=== PATIENT | female | born 1990 | race Caucasian/White ===

== ENCOUNTER 2022-04-13 13:35 | Outpatient (CLI) | payer OTHER, SELFPAY ==
[2022-04-13 16:50] LABS: Chlamydia DNA Amplified* NOT DETECTED (No Detected); GC DNA Amplified* NOT DETECTED (No Detected)
== END 2022-04-13 13:36 | disposition home or self-care (01) ==
LOC: NFLDREF 13:59
PROVIDERS: Visit Provider Registered Nurse
DX: N89.8 Other specified noninflammatory disorders of vagina (principal)
CPT/HCPCS: 87491; 87591

== ENCOUNTER 2024-01-23 13:44 | Outpatient (CLI) | payer OTHER, SELFPAY ==
--- NOTE | 2024-01-23 14:00 | CRLHL7_ITS ---
For Patients: As a result of the Century Cures Act, medical imaging exams and procedure reports are released immediately into your electronic medical record. You may view this report before your referring provider. If you have questions, please contact your health care provider. INDICATION: First trimester scan, establish dates. COMPARISON: None. TECHNIQUE: Real-time ribera-scale imaging of the pelvis was performed. FINDINGS: Intrauterine gestational sac is present measuring 2.9 cm, 8 weeks 0 days. pole measures 1.2 cm, 7 weeks 3 days. Yolk sac measures 1.9 millimeters. No heart tones. No perigestational hemorrhage. Ovaries normal. IMPRESSION: Intrauterine demise. Dictated by Alvaro Treadwell MD @ 01/24/2024 6:44:44 AM (Electronically Signed)
== END 2024-01-23 13:45 | disposition home or self-care (01) ==
LOC: US 13:44
PROVIDERS: Visit Provider Advanced Practice Midwife
DX: Z34.91 Encounter for supervision of normal pregnancy, unspecified, first trimester (principal); Z3A.08 8 weeks gestation of pregnancy; O02.1 Missed abortion
CPT/HCPCS: 76817

== ENCOUNTER 2024-06-19 14:22 | Outpatient (CLI) | payer OTHER, SELFPAY | END 2024-06-19 14:23 | disposition home or self-care (01) | LOC: NFLDREF 06-22 06:53 | PROVIDERS: Visit Provider Advanced Practice Midwife | DX: Z34.81 Encounter for supervision of other normal pregnancy, first trimester (principal); Z11.3 Encounter for screening for infections with a predominantly sexual mode of transmission | CPT/HCPCS: 84702; 87491; 87591 ==

== ENCOUNTER 2024-06-22 10:28 | Outpatient (CLI) | payer OTHER, SELFPAY | END 2024-06-22 10:29 | disposition home or self-care (01) | LOC: NFLDREF 18:21 | PROVIDERS: Visit Provider Advanced Practice Midwife | DX: Z34.91 Encounter for supervision of normal pregnancy, unspecified, first trimester (principal) | CPT/HCPCS: 84702 ==

== ENCOUNTER 2024-06-24 08:20 | Outpatient (CLI) | payer OTHER, SELFPAY | END 2024-06-24 08:21 | disposition home or self-care (01) | LOC: NFLDREF 06-25 05:21 | PROVIDERS: Visit Provider Advanced Practice Midwife | DX: O20.9 Hemorrhage in early pregnancy, unspecified (principal) | CPT/HCPCS: 84702 ==

== ENCOUNTER 2024-06-26 13:09 | Outpatient (CLI) | payer OTHER, SELFPAY ==
--- NOTE | 2024-06-26 13:15 | CRLHL7_ITS ---
For Patients: As a result of the Century Cures Act, medical imaging exams and procedure reports are released immediately into your electronic medical record. You may view this report before your referring provider. If you have questions, please contact your health care provider. INDICATION: First trimester scan, establish dates. COMPARISON: None. TECHNIQUE: Real-time ribera-scale imaging of the pelvis was performed. FINDINGS: Sonographic imaging demonstrates a single living intrauterine gestation. The embryo demonstrates a regular cardiac rate measuring 121 beats per minute. The embryo`s crown-rump length measurement of 0.37 cm corresponds to a gestational age of 6 weeks 0 days with a sonographic due date of 02/19/2025. There is a normal-appearing yolk sac. There are no gross abnormalities noted within the embryo at this early state of development. The gestational sac has a normal appearance. Blood products within the right side of bicornuate uterus measuring 2.4 x 0.5 x 1.4 cm. The amount of fluid within the sac appears appropriate for gestational age. The cervix is closed. The myometrium appears normal. Corpus luteal/hemorrhagic ovarian cysts measure 1.9 x 1.5 x 1.3 cm on the right and 2.0 x 1.7 x 1.5 cm on the left. There are no suspicious fluid collections noted in the cul-de-sac. IMPRESSION: Single living intrauterine within the left horn of a bicornuate uterus measuring 6 weeks 0 days and sonographic due date 02/19/2025. Blood products are present within the right horn of a bicornuate uterus measuring 2.4 x 0.5 x 1.4 cm. Dictated by Alvaro Treadwell MD @ 06/29/2024 9:58:55 AM (Electronically Signed)
== END 2024-06-26 13:10 | disposition home or self-care (01) ==
LOC: US 13:09
PROVIDERS: Visit Provider Advanced Practice Midwife
DX: O20.9 Hemorrhage in early pregnancy, unspecified (principal); Z3A.01 Less than 8 weeks gestation of pregnancy
CPT/HCPCS: 76817

== ENCOUNTER 2024-06-26 14:26 | Outpatient (CLI) | payer OTHER, SELFPAY | END 2024-06-26 14:27 | disposition home or self-care (01) | LOC: NFLDREF 14:28 | PROVIDERS: Visit Provider Advanced Practice Midwife | DX: N89.8 Other specified noninflammatory disorders of vagina (principal) | CPT/HCPCS: 87086 ==

== ENCOUNTER 2024-07-13 11:32 | Outpatient (CLI) | payer OTHER, SELFPAY ==
[2024-07-13 16:37] LABS: Chlamydia DNA Amplified* NOT DETECTED (No Detected); GC DNA Amplified* NOT DETECTED (No Detected)
[2024-07-16 03:32] LABS: HPV Source Cervical; HPV, High Risk by TMA Not Detected
== END 2024-07-13 11:33 | disposition home or self-care (01) ==
PROVIDERS: Visit Provider Advanced Practice Midwife
DX: Z34.91 Encounter for supervision of normal pregnancy, unspecified, first trimester (principal); Z12.4 Encounter for screening for malignant neoplasm of cervix; Z3A.08 8 weeks gestation of pregnancy
CPT/HCPCS: 83020; 83021; 85660; 86592; 86703; 86704; 86706; 86762; 86787; 86803; 86850; 86900; 86901; 87086; 87340; 87491; 87591; 87624; 87625; 88141; 88142

== ENCOUNTER 2024-11-23 09:01 | Outpatient (CLI) | payer OTHER, SELFPAY ==
--- NOTE | 2024-11-23 09:15 | CRLHL7_ITS ---
For Patients: As a result of the Century Cures Act, medical imaging exams and procedure reports are released immediately into your electronic medical record. You may view this report before your referring provider. If you have questions, please contact your health care provider. OB ULTRASOUND LMP: 05/14/2024. CASS by LMP: 02/18/2025. GA: 27 w, 4 d. Single. INDICATION: Maternal care for unspecified congenital malformation. TECHNIQUE: Real time grayscale imaging of the fetus was performed. Transabdominal. CERVIX: Not visualized. POSITIONING: Vertex. AMNIOTIC FLUID: 6.7 cm. SDP (N: greater than 2 x 1 cm) PLACENTA: Technique: Transabdominal. PLACENTA POSITION: Right wall. DOPPLER: heart rate: 141 bpm. BIOMETRY: BPD: 7.5 cm. 30 w, 1 d, 97 percent. HC: 26.8 cm. 29 w, 2 d, 74 percent. AC: 24.4 cm. 28 w, 5 d, 76 percent. FL: 5.5 cm. 29 w, 1 d, 80 percent. FL/AC ratio: 22.64 percent. HC/AC ratio: 1.10. EFW: 1317 g. Weight: 2 lbs, 14 oz. age by this US: 29 w, 2 d. CASS by this US: 02/06/2025. Percentile by CASS: 89 percent. IMPRESSION: Sonographic gestational age 29 weeks 2 days and sonographic due date 02/06/2025. Sonographic age 12 days ahead of the clinical age. Estimated weight 89th percentile. Abdominal circumference 76th percentile. Alvaro Treadwell M.D. Diagnostic Radiologist [email or web address] [email or web address]/Dictated by: Alvaro Treadwell MD @ 11/23/2024 10:30:00 AM (Electronically Signed)
== END 2024-11-23 09:02 | disposition home or self-care (01) ==
LOC: US 09:02
PROVIDERS: Visit Provider Obstetrics & Gynecology
DX: O34.02 Maternal care for unspecified congenital malformation of uterus, second trimester (principal); O36.63X0 Maternal care for excessive fetal growth, third trimester, not applicable or unspecified; Z3A.27 27 weeks gestation of pregnancy
CPT/HCPCS: 76816

== ENCOUNTER 2024-11-23 09:03 | Outpatient (CLI) | payer OTHER, SELFPAY | END 2024-11-23 09:04 | disposition home or self-care (01) | LOC: NFLDREF 12-01 23:03 | PROVIDERS: Visit Provider Obstetrics & Gynecology | DX: Z34.83 Encounter for supervision of other normal pregnancy, third trimester (principal) | CPT/HCPCS: 86592 ==

== ENCOUNTER 2025-01-06 09:15 | Outpatient (CLI) | payer OTHER, SELFPAY ==
--- NOTE | 2025-01-06 09:30 | CRLHL7_ITS ---
For Patients: As a result of the Cures Act, medical imaging exams and procedure reports are released immediately into your electronic medical record. You may view this report before your referring provider. If you have questions, please contact your health care provider. OB ULTRASOUND FOLLOW-UP/LIMITED, 01/06/2025 CLINICAL HISTORY: Bicornuate uterus. COMPARISON: 11/23/2024, 10/13/2024, 09/22/2024. TECHNIQUE: Real time ribera scale imaging of the fetus was performed. Transabdominal imaging performed. FINDINGS: LMP: 05/14/2024. CASS by LMP: 02/18/2025. GA: 33 weeks 6 days. Gestation: Single. Cervix: Not visualized. Positioning: Vertex. Amniotic Fluid: 5.1 cm SDP. Placenta: Technique: TA. Placenta Position: Anterior, left wall. Dopplers: Heart Rate: 159 bpm. BIOMETRY: BPD: 9.2 cm, 37 weeks 3 days. >97% HC: 32.8 cm, 37 weeks 2 days. 91.6% AC: 30.9 cm, 34 weeks 6 days. 80.2% FL: 6.7 cm, 34 weeks 3 days. 55.3% FL/AC Ratio: 21.6% HC/AC Ratio: 1.1. EFW: 2628 g, 5 lb 13 oz. Age by this US: 36 weeks 0 days. CASS by this US: 02/03/2025. Percentile by CASS: 82.7% IMPRESSION: 1. Sonographic gestational age 36 weeks 0 days and sonographic due date 02/03/2025. Sonographic age is 15 days ahead of the clinical age. 2. Estimated weight 83rd percentile. Abdominal circumference 80th percentile. BPD greater than 97th percentile. Alvaro Treadwell M.D. Diagnostic Radiologist [email or web address] Transcribed: 11:19 am DW/Dictated by: lAvaro Treadwell MD @ 01/06/2025 10:41:00 AM (Electronically Signed)
== END 2025-01-06 09:16 | disposition home or self-care (01) ==
LOC: US 09:15
PROVIDERS: Visit Provider Obstetrics & Gynecology
DX: O34.03 Maternal care for unspecified congenital malformation of uterus, third trimester (principal); O36.63X0 Maternal care for excessive fetal growth, third trimester, not applicable or unspecified; Q51.3 Bicornate uterus; Z3A.33 33 weeks gestation of pregnancy
CPT/HCPCS: 76816

== ENCOUNTER 2025-01-20 09:00 | Outpatient (CLI) | payer OTHER, SELFPAY | END 2025-01-20 09:01 | disposition home or self-care (01) | LOC: NFLDREF 01-22 02:49 | PROVIDERS: Visit Provider Obstetrics & Gynecology | DX: Z34.83 Encounter for supervision of other normal pregnancy, third trimester (principal) | CPT/HCPCS: 87081; 87653 ==

== ENCOUNTER 2025-02-16 07:15 | Inpatient (IN) | payer OTHER, SELFPAY ==
[2025-02-16] VITALS (27 sets, daily range): BP systolic 96–131; BP diastolic 46–87; PULSE 65–83; RESP 16–18; TEMP 36.3–37.1; O2SAT 96–100; BMI 29.6
[2025-02-16] MEDS: LACTATED RINGERS 1000 ML 1,000 ML 125 ML IV ×2 (08:20→12:58)
[2025-02-16 08:21] LABS: Hematocrit* 37.7 % (33.0-51.0); Hemoglobin* 12.4 gm/dL (12.0-16.0); Immature Granulocytes Abs Auto 0.02 K/uL (0.00-0.30); Immature Granulocytes Pct Auto 0.3 %; Lymphocytes Absolute Auto 1.55 K/uL (0.90-2.90); Mean Corpuscular HGB Conc 33 gm/dL (32-36); Mean Corpuscular Hemoglobin 29 pg (26-34); Mean Corpuscular Volume 89 fL (80-100); RDW Coefficient of Variation % 14.8 % (11.5-15.5); Red Blood Count* 4.26 m/uL (4.00-5.20); White Blood Count* 7.56 K/uL (4.50-11.00)
[2025-02-16 08:22] LABS: Slide Review Reflex No
--- NOTE | 2025-02-16 09:00 | SUR.OPER ---
PATIENT QUESTIONS ANSWERED SATISFACTORILY PREOPERATIVELY.? PATIENT BROUGHT TO OR #5 PER AMBULATION BY THE OB RN.? Patient positioned supine on OR #5 bed.? The perioperative?team supported arms bilaterally on arm boards.? Final approval of positioning by surgeon.
--- NOTE | 2025-02-16 09:11 | P.OBHP_ITS ---
OB - H&P: HPI History of Present Illness Chief complaint: Maternity Narrative: Tosin Escobedo is a 34 year old female at 39w5d GA seen for repeat C/S. is complicated by bicornuate uterus, history of C/S, history of melanoma, anxiety and anemia. Patient is feeling well today with no acute concerns. Denies regular/painful uterine contractions, vaginal bleeding or leaking of fluid. Endorses active movement. No questions or concerns regarding her . Preop hemoglobin 12.4, platelets 112. Specific Issues/Plans Partner: Mu? H&P:? Kia on 01/27 #Bicornate uterus not noted in previous Level II US. Redemonstrated. Growth at 28 and 34 weeks. Orders placed # Previous C/S?- planning rC/S on 02/16 with Kia #? Melanoma excision in November 2023 seeing Derm for follow up as recommended Send placenta to pathology #? Hx anxiety not on meds at [facility], denies issues at this time. Elevated PHQ9 and GAD7 at 32 weeks - PGQ9 5 and GAD7 of 7 at follow up. ? #Anemia - Hgb 10.4 at 27w4d GA, start oral iron Imaging:??? 09/22/24: EFW 90 percentile. AC 82nd percentile. Posterior placenta, no previa. Three-vessel cord. MVP 6.1 cm. No anomalies commonly detected by ultrasound were detected. However there were suboptimal views. Transabdominal imaging of the cervix appeared long and closed. Some images suggest a uterine anomaly/bicornuate or septated uterus with fetus located on left side of the uterus. Transvaginal ultrasound performed for cervical length which was 45 mm. Follow-up to in 4 weeks to reassess anatomy for the suboptimal views. 10/13/24: EFW 550 g, 94th percentile, AC 90th percentile. Posterior/left lateral placenta, no previa. MVP 5.7 cm. Remaining anatomy survey was completed, no anomalies. 11/23: EFW 1317g at 89%ile, AC 76%ile. Vertex. FHR 141bpm, MVP 6.7cm. 01/06: EFW 2628g at 83%ile - BPD >97, HC 92, AC 80, FL 55. MVP 5.1. Vertex. Vaccinations:?? COVID: initial series, boosted 1 time, declined booster today. Flu: 05/18/2024 Tdap: 12/21/24 32 week mental health: PHQ9: 10, GAD7: 8. Declined referral/medications. Last pap:? done at NOB visit? PFSH PFSH Medical History Vaginal bleeding affecting early ?O20.9 - Hemorrhage in early , unspecified (ICD-10) Hx of one miscarriage ?Z87.59 - Personal history of other complications of , childbirth and the puerperium (ICD-10) Anemia ?D64.9 - Anemia, unspecified (ICD-10) History of PID ?Z87.42 - Personal history of other diseases of the female genital tract (ICD-10) Mastitis ?N61.0 - Mastitis without abscess (ICD-10) Surgical History Hx of dilation and curettage ?Z98.890 - Other specified postprocedural states (ICD-10) History of section (08/11/21) ?Z98.891 - History of uterine scar from previous surgery (ICD-10) History of tonsillectomy (2010) ?Z90.89 - Acquired absence of other organs (ICD-10) Family History Father Liver disease Colitis Mother High cholesterol Maternal Grandmother High cholesterol Maternal Grandfather High cholesterol Alcohol dependence Family/Other Cancer Aunt Melanoma Family/Other Melanoma Social History Narrative: Education: Bachelors? ? Work: manager nursing? ? Partner: Mu? partner works in factory Lives with: Nghia age 3 years? ? Pets: none? ? Abuse: Denies past Safe at home with current partner ? ? ? Special Diet: Denies? ? Ok with a blood transfusion: yes? ? Culture or sabianism beliefs: denies? RISK FACTORS? ? Exercise Times/wk: not regularly? ? Depression/Anxiety: more anxiety and some depression? ? Previous Treatments not at this time, pervious medication ? Therapy in past PILO: 6 PHQ 9: 4? ? Seat Belt Use: Routinely ? Smoking: Denies past/present? ? Alcohol/day: Denies while ? ?when not 5-8 drinks a week Caffeine: normally a coffee and soda or bubbler in afternoon has decreased intake? ? Drug Use: Denies past/present? ? What is your current living situation?: I presently have a place to live Problems where you live: no known problems In the past 12 months, utilities in danger of being shut off: no In past 12 months, lack of transportation kept you from medical appts, meetings, work, or getting things needed for daily living: no In the past 12 mos, have been you worried that your food would run out before you had money to buy more?: never true In the past 12 mos, the food you bought just didn't last and you didn't have money to buy more?: never true Smoking Status: Never smoker How often does anyone, including family, friends and others, physically hurt you : never How often does anyone, including family, friends and others, insult or talk down to you: never How often does anyone, including family, friends and others, threaten you with harm: never How often does anyone, including family, friends and others, scream or curse at you: never Meds Home Medications and Allergies Home Medications ?Medication ?Instructions ?Recorded ?Confirmed ?Type 103-folic ac 400 tab PO 01/23/24 02/11/25 His tory mcg-omega-3 32.5 mg-dha-fish oil chew tablet ( with DHA and Folic Acid) calcium carbonate (Tums) 200 mg PO BID PRN 12/08/24 0 02/16/25 History ferrous sulfate 325 mg (65 mg 325 mg PO QDAY 12/08/24 02/16/25 History iron) tablet Allergies Allergy/AdvReac Type Severity Reaction Status Date / Time No Known Drug Allergies Allergy Verified 02/11/25 09:25 OB - H&P: Exam Physical Exam: Vital signs: Temp Pulse Resp BP Pulse Ox 98.1 F 76 16 121/87 99 02/16/25 07:40 02/16/25 07:40 02/16/25 07:40 02/16/25 07:40 02/16/25 07:38 Narrative: Physical exam: General: No acute distress Psych: Alert and oriented x3, full affect Abdomen: Gravid. Otherwise soft and nontender. heart rate: Reactive NST. Baseline of 135 beats per minute, moderate variability, several qualifying 15x15 accelerations seen. OB - Results Labs Labs: Short CBC 02/16/25 Range/Units 08:15 WBC 7.56 (4.50-11.00) K/uL Hgb 12.4 (12.0-16.0) gm/dL Hct 37.7 (33.0-51.0) % Plt Count 112 L (140-440) K/uL Assessment and Plan Assessment and plan (1) Hx of section complicating : Status: Acute (2) Hx of melanoma excision: Problem comment: November 2023 sees train braker Status: Acute (3) Bicornate uterus complicating : Status: Acute (4) Anxiety: Status: Chronic (5) Migraine without aura: Status: Chronic Plan Tosin is a 34-year-old G 3P1 at 39 weeks seen prior to scheduled repeat . is complicated by history of , bicornuate uterus, anemia, anxiety and AMA. - Plan to proceed with scheduled repeat . We again reviewed the risks, benefits and alternatives in detail. All questions answered, written consent previously obtained but initial today. - preop labs obtained, new gestational thrombocytopenia noted with platelets of 112. - active type and screen on file - plan perioperative Ancef - placenta to be sent for pathology given history of melanoma
[2025-02-16 10:24] LABS: Prothrombin Time 12.7 Seconds
[2025-02-16 10:25] LABS: INR 0.88 (0.91-1.10)
[2025-02-16 10:39] LABS: Hematocrit* 31.3 % (33.0-51.0); Hemoglobin* 10.4 gm/dL (12.0-16.0); Immature Granulocytes Abs Auto 0.08 K/uL (0.00-0.30); Immature Granulocytes Pct Auto 0.7 %; Mean Corpuscular HGB Conc 33 gm/dL (32-36); Mean Corpuscular Hemoglobin 30 pg (26-34); Mean Corpuscular Volume 89 fL (80-100); RDW Coefficient of Variation % 14.8 % (11.5-15.5); Red Blood Count* 3.50 m/uL (4.00-5.20); White Blood Count* 10.67 K/uL (4.50-11.00)
[2025-02-16 10:40] LABS: Lymphocytes Absolute Auto 1.50 K/uL (0.90-2.90); Slide Review Reflex No
[2025-02-16] MEDS: CEFAZOLIN 2 GM INJ IVP (10:42)
[2025-02-16 11:05] LABS: INR 1.02 (0.91-1.10); Prothrombin Time 14.2 Seconds
[2025-02-16] MEDS: miSOPROStoL 800 MCG/4 TABLET PR (11:34)
--- NOTE | 2025-02-16 11:53 | P.ANES_ITS ---
Anesthesia Charges Start Date/Time Anesthesia Start Date: 02/16/25 Anesthesia Start Time: 09:01 Stop Date/Time Anesthesia Stop Date: 02/16/25 Anesthesia Stop Time: 11:42 Coding CPT Codes CPT Codes: ANESTH CS DELIVERY - 65204 ([id number]) P2 - PATIENT W/MILD SYST DISEASE, QK - CATH LAB TECH 2-4 CNCRNT ANES PROC, QX - BREAD WRAPPING MACHINE FEEDER SVC W/ MD MED DIRECTION
--- NOTE | 2025-02-16 11:53 | W.ANESCHARGE ---
Anesthesia Charges Start Date/Time Anesthesia Start Date: 02/16/25 Anesthesia Start Time: 09:01 Stop Date/Time Anesthesia Stop Date: 02/16/25 Anesthesia Stop Time: 11:42 Coding CPT Codes CPT Codes: ANESTH CS DELIVERY - 03687 ([id number]) P2 - PATIENT W/MILD SYST DISEASE, QK - CONTROL AND RECOVERY SPECIAL TACTICS 2-4 CNCRNT ANES PROC, QX - KILN PLACER SVC W/ MD MED DIRECTION
--- NOTE | 2025-02-16 11:55 | P.NB_ITS ---
Nerve Block Nerve Block Time Seen by Provider: 11:30 Date Seen: 02/16/25 Type of block requested by surgeon for post-operative analgesia: TAP Side: bilateral Time out performed: Yes Verification of patient name: Yes Verification of date of : Yes Name of person performing procedure: Doc Healy Continuous monitoring Was continuous monitoring of O2 sat, B/P, cardiac cath lab manager, recorded every 15 minutes?: Yes Procedure Checklist: sterile prep, needles and gloves Ultrasound guided. Images saved: Yes Medications given in 5ml increments after negative aspiration: Marcaine %: 0.25 mL: 30 Needle gauge: 20 and Exparel mL: 10 Needle gauge: 20 Patient tolerated procedure well: Yes Block Charges Block Charge (with Pro Fee): TAP Bilateral Use of Ultrasound Machine for Block: Yes- US Guidance/pain block
--- NOTE | 2025-02-16 12:00 | P.ANES_ITS ---
Anesthesia Charges Start Date/Time Anesthesia Start Date: 02/16/25 Anesthesia Start Time: 09:01 Stop Date/Time Anesthesia Stop Date: 02/16/25 Anesthesia Stop Time: 11:42 Coding CPT Codes CPT Codes: ANESTH CS DELIVERY - 45845 ([id number]) QK - PROJECT MANAGER/DESIGN MANAGER 2-4 CNCRNT ANES PROC, QX - PRODUCTION ASSEMBLER SVC W/ MD MED DIRECTION, P2 - PATIENT W/MILD SYST DISEASE
--- NOTE | 2025-02-16 12:00 | W.ANESCHARGE ---
Anesthesia Charges Start Date/Time Anesthesia Start Date: 02/16/25 Anesthesia Start Time: 09:01 Stop Date/Time Anesthesia Stop Date: 02/16/25 Anesthesia Stop Time: 11:42 Coding CPT Codes CPT Codes: ANESTH CS DELIVERY - 43623 ([id number]) QK - PATTERNMAKER PLASTER 2-4 CNCRNT ANES PROC, QX - PILLOWCASE SEWER SVC W/ MD MED DIRECTION, P2 - PATIENT W/MILD SYST DISEASE
[2025-02-16 12:30] LABS: Hematocrit* 38.3 % (33.0-51.0); Hemoglobin* 12.7 gm/dL (12.0-16.0); Immature Granulocytes Pct Auto 0.3 %; Mean Corpuscular HGB Conc 33 gm/dL (32-36); Mean Corpuscular Hemoglobin 30 pg (26-34); Mean Corpuscular Volume 89 fL (80-100); RDW Coefficient of Variation % 14.3 % (11.5-15.5); Red Blood Count* 4.30 m/uL (4.00-5.20); White Blood Count* 15.76 K/uL (4.50-11.00)
[2025-02-16 12:32] LABS: Immature Granulocytes Abs Auto 0.00 K/uL (0.00-0.30); Lymphocytes Absolute Auto 0.80 K/uL (0.90-2.90); Slide Review Reflex No
[2025-02-16] MEDS: LOPERAMIDE HCL 2 MG CAPSULE 4 MG PO (12:40)
[2025-02-16 12:45] LABS: Albumin* 3.0 g/dL (3.3-5.0); Chloride* 106 mmol/L (96-114); Sodium* 134 mmol/L (135-149)
[2025-02-16 12:46] LABS: Potassium* 4.4 mmol/L (3.6-5.1)
[2025-02-16 12:48] LABS: Alanine Aminotransferase* 12 U/L (4-35); Alkaline Phosphatase* 152 U/L (40-150); Anion Gap 5 mEq/L (7-15); Aspartate Amino Transferase* 31 U/L (12-35); Bilirubin Total* 0.5 mg/dL (0.1-1.5); Blood Urea Nitrogen* 10 mg/dL (5-24); Carbon Dioxide* 23 mmol/L (20-32); Creatinine* 0.7 mg/dL (0.5-1.5); Est. Creatinine Clearance* 96.86; Estimated Glomerular Filt Rate 116 ml/min; Total Protein* 5.7 g/dL (6.0-8.3)
[2025-02-16 12:49] LABS: Calcium* 8.4 mg/dL (8.4-10.6); Glucose* 94 mg/dL (60-115); INR 0.97 (0.91-1.10); Prothrombin Time 13.7 Seconds
--- NOTE | 2025-02-16 15:32 | PM.OBPRCCS ---
Procedure Date of procedure: 02/16/25 Pre-op diagnosis: History of , 39 weeks, bicornuate uterus, history of melanoma, anxiety and anemia Post-op diagnosis: other ( hemorrhage, possible focal placenta accreta ) Procedure Done: Global Will [facility] bill your pro fee for this procedure?: Yes Blood Loss Measurement Type: QBL (9180) Bakri Used: No Urine Output (mL): 150 Surgeon: Lencho Adam MD Oxygen Equipment Preparer: Annika Burris MD Anesthesia Type: Spinal Findings: Live born male Unremarkable uterus, bilateral fallopian tubes and ovaries Suspected adherent placenta to the posterior left endomyometrium Procedure Name: Repeat delivery Procedure Description: Patient was taken to the operating room with IV running. She received cefazolin in preoperative prophylaxis. Spinal anesthesia was administered. Bosch catheter was inserted. She was prepped and draped in the usual sterile fashion. Anesthesia was tested and found to be adequate. A low-transverse skin incision was made with a scalpel along the superior aspect of her prior Pfannenstiel scar and carried through to the underlying layer of fascia with the scalpel. The subcutaneous fat was dissected off the underlying fascia with Bovie and blunt dissection. The fascia was nicked in the midline with a scalpel, and this incision was extended laterally with scissors. The rectus muscles were in the midline. Peritoneum was identified and entered bluntly. Bovie was used to widen this opening laterally. Dirk O retractor was inserted and tightened down, providing excellent visualization of the lower uterine segment. The bladder reflection was slightly advanced along the lower uterine segment. A bladder flap was created with a combination of sharp and blunt dissection. Low-transverse uterine incision was made with a scalpel. Incision was widened bluntly. The infant's head was grasped through the hysterotomy and elevated to the hysterotomy. The remainder of the body delivered without incident with the help of fundal pressure. No nuchal cord was noted. Cord was clamped and cut after 30 seconds. was handed off to attending nurses. IV pitocin was initiated. Traction was applied to the umbilical cord, where resistance was noted. Crede of the uterus ensued, where placenta failed to deliver. Manual removal of the placenta was attempted, where the interface between the uterus and placenta could be at the infection aspect but resistance was felt when attempted to detach the placenta when moving superiorly toward the left posterior fundus. I then attempted to separate the placenta from a superior approach, where resistance was again felt at the posterior mid-uterine body and fundus. The majority of the placenta could be grasped with one hand, where the uterus was stabilized with the other, and traction was further applied to remove the placenta. Placenta was noted to be disrupted in appearance, where an apparent defect in the endomyometrium was noted at the site of adherent placental attachment. The uterus was cleaned of all clots and debris with dry lap pad x2 in attempted to remove further placental tissue. No apparent placental cotyledon was noted to be adherent but visual inspection was concerning for possible retained placental fragments/membranes. Given concern for possible focal placenta accreta spectrum, I requested administration of IV TXA, cross matching of 2u pRBCs and placement of a second IV and a second surgeon. Assessment of current QBL was requested and was noted to be approximately 500mL. A Banjo curettage was utilized to gently curette the posterior left endometrial cavity, with no apparent return of placental tissue. Another sweep of the uterine cavity was performed with lap sponge. Defect in the endomyometrium was noted from the left midbody of the uterus to the fundus along posterior aspect. Lap sponge was utilized to apply pressure to the endometrial cavity, where the posterior uterus was inspected with no apparent abnormal vessels or gross evidence of PAS/percreta. Attention was turned back to the endometrial cavity, where bleeding was noted at the site of suspected adherent placenta and subsequent endomyometrial defect. IV pitocin was discontinued in order to better assess the most proximal aspect of this defect. Dr. Burris arrived at this time to assist in the OR. A series of [id number] sutures were applied across the endomyometrial defect, working most proximal to distal. Total 4 figure of eight sutures were applied. 1u uncrossmatched pRBCs was requested while surgical repair was ongoing, while updated QBL was being quantified. IV pitocin was resumed after most fundal defect was closed. With next QBL update, blood loss was noted to be approximately 2.2L. As such, massive transfusion protocol was initiated. Some ongoing oozing was noted, but significant improvement in hemostasis was noted with reapproximation of the left posterior uterine body. IM methergine and hemabate were requested an administered. With improved uterine tone, excellent hemostasis was noted. No apparent ongoing bleeding from prior posterior left endomyometrial defect was noted. The hysterotomy was then reapproximated with 0 Vicryl in a running, locked fashion. Second layer of the same suture was used in imbricating fashion to obtain hemostasis. Two figure of eight sutures were applied at the right aspect of the hysterotomy due to ongoing oozing. A uterine sinus was encountered superiorly, where two 0 vicryl figure of eight sutures were applied then a 2-0 chromic figure of eight was applied. The bladder flap was elevated and inspected, made hemostatic with scant electrocautery. The uterus was reintroduced to the peritoneal cavity. Diligent inspection for hemostasis ensued, where excellent hemostasis and uterine tone was noted. Mary was applied across the hysterotomy and bladder flap due to scant oozing. During this time, repeat labs demonstrated hemoglobin of 10.4 (from 12.4) and platelets of 119 (from 112), coags were pending. A second unit of pRBCs was ongoing. FFP was thawed and ultimately administered. The adnexa were examined and noted to be normal in appearance. The cul-de-sac and gutters were cleansed with dampened laparotomy sponge, removing any further clots and debris. The Dirk O retractor was removed. The hysterotomy was reexamined and found to be hemostatic. The rectus muscles were grasped, elevated and examined and made hemostasis with electrocautery and Mary. The fascia was reapproximated with looped 0 PDS in a running fashion. Subcutaneous fat was irrigated and Bovie used on oozing vessels. The subcutaneous fat did not require closure. The skin was closed with a subcuticular stitch of 3-0 monocryl. Surgical glue was applied above this. details: - Liveborn male fetus - weight: 7lb 11.4 oz - APGARs were 8 and 9 at 1 and 5 minutes respectively Patient tolerated procedure well was taken to recovery area in stable condition. Prior to leaving the OR, coagulation studies returned and were noted to be within normal limits. As such, MTP was discontinued after transfusion of 2u pRBCs and 1u of FFP. Placenta was inspected and was noted to have disrupted maternal surface, sent for pathologic evaluation with note of concern for focal accreta. Endometrial curettings were also sent for pathologic evaluation. Surgical debrief was completed in OR with crew. No questions/concerns. Debrief was also completed with Tosin and her following the case. All questions answered, emotional support provided. Plan repeat labs at 1230 with further transfusion as needed. Care turned over to yard supervisor cotton gin Dr. Fatuma GILLESPIE. Complications: hemorrhage secondary to retained placenta, tissue trauma and atony Pathology: specimen obtained, sent to pathology Surgery Debrief Performed: Yes Condition: stable Disposition: floor
[2025-02-16] MEDS: ACETAMINOPHEN 500 MG TABLET 1000 MG PO ×2 (16:56→23:01)
[2025-02-16] MEDS: METHYLERGONOVINE MALEATE 0.2 MG TABLET PO (18:29)
[2025-02-16] MEDS: SIMETHICONE 80 MG TAB.CHEW PO (18:48)
[2025-02-16] MEDS: MAG HYDROX/ALUMINUM HYD/SIMETH 30 ML ORAL.SUSP PO (23:01)
[2025-02-17] VITALS (7 sets, daily range): BP systolic 104–112; BP diastolic 66–70; PULSE 84–89; RESP 16–18; TEMP 36.7–36.8; O2SAT 97–99
[2025-02-17] MEDS: METHYLERGONOVINE MALEATE 0.2 MG TABLET PO ×3 (02:57→18:01)
[2025-02-17] MEDS: ACETAMINOPHEN 500 MG TABLET 1000 MG PO ×3 (05:26→20:29)
[2025-02-17 06:46] LABS: Hematocrit* 33.0 % (33.0-51.0); Hemoglobin* 11.3 gm/dL (12.0-16.0); Immature Granulocytes Pct Auto 0.3 %; Mean Corpuscular HGB Conc 34 gm/dL (32-36); Mean Corpuscular Hemoglobin 30 pg (26-34); Mean Corpuscular Volume 88 fL (80-100); RDW Coefficient of Variation % 14.8 % (11.5-15.5); Red Blood Count* 3.75 m/uL (4.00-5.20); White Blood Count* 11.63 K/uL (4.50-11.00)
[2025-02-17 06:48] LABS: Immature Granulocytes Abs Auto 0.00 K/uL (0.00-0.30); Lymphocytes Absolute Auto 1.80 K/uL (0.90-2.90); Slide Review Reflex No
--- NOTE | 2025-02-17 08:20 | P.OBPN_ITS ---
OB - PN:Subj Subjective Time Seen by Provider: 08:00 Date Seen: 02/17/25 Narrative: Tosin Escobedo is a 34 year old seen on POD1 from repeat delivery at 39 weeks. is complicated by bicornuate uterus, history of C/S, history of melanoma, anxiety and anemia. Delivery was complicated by PPH with possible focal PAS due to adherent placenta requiring D&C and oversewing of endomyometrial defects. Total QBL was 2.7L, where MTP was activated and 2 u pRBCs and 1 FFP were administered. Post-procedure labs at 1230 yesterday demonstrated Hgb of 12.7 (from 10.4), platelets of 95 and normal coags. Overnight, her VS were within normal limits. Adequate UOP of 1.275L/8 hours. Tosin notes she is overall feeling well this morning. She has noticed that her pain is increased, attributing to wearing off of medications from surgery yesterday. At rest, she notes her pain is about a 5 and it may be a 7-8 when ambulating. She is currently only on a regimen of Tylenol, has been avoiding narcotics as these make her feel sedated and nauseous when utilized previously. NSAIDs were held in the setting of hemorrhage. In addition, she notes gaseous distension where she has not yet passed gas. She does have a sensation that flatus could be imminent, where she has been working to ambulate, taking a bowel regimen and simethicone as needed. Bosch catheter has been removed, voiding spontaneously without difficulty. Tosin notes she has had very minimal bleeding, less than her 1st . She denies feeling dizzy, lightheaded, chest pain or shortness of breath. Appetite at baseline, no nausea vomiting. No lower extremity pain, edema or erythema. Emotionally, she notes she is overall doing well. We did formally debrief her delivery yesterday, where she notes she has no questions or concerns at this time. Baby boy is doing well, no feeding difficulties. OB - PN: Obj Exam Physical Exam: Vital signs: Temp Pulse Resp BP Pulse Ox O2 Del Method 98.1 F 89 16 104/66 98 Room Air 02/17/25 02:59 02/17/25 02:59 02/17/25 04:47 02/17/25 02:59 02/17/25 02:59 02/17/25 02:59 Narrative: General: Alert and oriented, in no acute distress Psych: Appropriate mood and affect Abdomen: Moderate gaseous distension, though upper abdomen palpates as soft and compressible. Bowel sounds readily auscultated. There is tenderness to palpation in the lower quadrants, consistent with postoperative state. No rebound or guarding. Surgical dressing is on, clean/dry. No surrounding erythema or ecchymosis. Extremities: No calf edema, erythema or pain OB - PN: Obj Data Labs Labs: Laboratory Results - last 24 hr 02/16/25 02/16/25 02/16/25 08:15 10:32 12:22 WBC 7.56 10.67 15.76 H RBC 4.26 3.50 L 4.30 Hgb 12.4 10.4 L 12.7 Hct 37.7 31.3 L 38.3 MCV 89 89 89 MCH 29 30 30 MCHC 33 33 33 RDW Coeff of Jovany 14.8 14.8 14.3 Plt Count 112 L 119 L 95 L Neut % (Auto) 70.2 80.4 H 92.3 H Lymph % (Auto) 20.5 13.6 L 5.3 L Montour % (Auto) 7.9 4.4 2.0 Eos % (Auto) 0.7 0.6 0.0 Baso % (Auto) 0.4 0.3 0.1 Neut # (Auto) 5.31 8.60 H 14.50 H Lymph # (Auto) 1.55 1.50 0.80 L Montour # (Auto) 0.60 0.50 0.30 Eos # (Auto) 0.05 0.06 0.00 Baso # (Auto) 0.03 0.03 0.00 Abs Immat Gran (auto) 0.02 0.08 0.00 Imm/Tot Granulo (auto) 0.3 0.7 0.3 INR 0.88 L 1.02 0.97 APTT 24 26 25 Fibrinogen 490 H 339 389 Sodium 134 L Potassium 4.4 Chloride 106 Carbon Dioxide 23 Anion Gap 5 L BUN 10 Creatinine 0.7 Estimated Creat Clear 96.86 Estimated GFR 116 Glucose 94 Calcium 8.4 Total Bilirubin 0.5 AST 31 ALT 12 Alkaline Phosphatase 152 H Total Protein 5.7 L Albumin 3.0 L Blood Type A Positive Antibody Screen NEGATIVE Crossmatch (AHG) See Detail 02/17/25 06:30 WBC 11.63 H RBC 3.75 L Hgb 11.3 L Hct 33.0 MCV 88 MCH 30 MCHC 34 RDW Coeff of Jovany 14.8 Plt Count 98 L Neut % (Auto) 77.0 H Lymph % (Auto) 15.6 L Montour % (Auto) 6.8 Eos % (Auto) 0.2 Baso % (Auto) 0.1 Neut # (Auto) 9.00 H Lymph # (Auto) 1.80 Montour # (Auto) 0.80 Eos # (Auto) 0.00 Baso # (Auto) 0.00 Abs Immat Gran (auto) 0.00 Imm/Tot Granulo (auto) 0.3 INR APTT Fibrinogen Sodium Potassium Chloride Carbon Dioxide Anion Gap BUN Creatinine Estimated Creat Clear Estimated GFR Glucose Calcium Total Bilirubin AST ALT Alkaline Phosphatase Total Protein Albumin Blood Type Antibody Screen Crossmatch (AHG) OB - PN: A/P Delivery Assessment and Plan (1) Hx of section complicating : Status: Acute (2) Hx of melanoma excision: Problem details: 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 is complicated by bicornuate uterus, history of C/S, history of melanoma, anxiety and anemia. Delivery was complicated by PPH with possible focal PAS due to adherent placenta requiring D&C and oversewing of endomyometrial defects. Total QBL was 2.7L, where MTP was activated and 2 u pRBCs and 1 FFP were administered. Post-procedure labs at 1230 yesterday demonstrated Hgb of 12.7 (from 10.4), platelets of 95 and normal coags. Overnight, her VS were within normal limits. Adequate UOP of 1.275L/8 hours. Tosin is progressing through her postoperative milestones very well. She is ambulating, without any dizziness or lightheadedness. Voiding spontaneously. She has not yet passed gas, finds this to be bothersome due to distention. She has been addressing this with ambulation, bowel regimen and simethicone as needed. No nausea/vomiting. With regard to pain, she describes pain as a 5 at rest and 7-8 with ambulation. Her current pain regimen is only Tylenol, as NSAIDs were held in the setting of her hemorrhage. She has intentionally trying to avoid oxycodone as previously this is made her feel sedated/nauseous. Given AM hemoglobin of 11.3 and stable platelets at 98, I do feel it is safe to resume NSAIDs. Toradol orders placed times 24 hours, to be followed by ibuprofen. In addition, we discussed that I could prescribe her a lower dose of oxycodone that may be utilized if needed with the hope to minimize side effects. Revised orders to oxycodone 2.5 mg to 5 mg Q4H PRN. Plan to continue p.o. Methergine times total of 48 hours in the setting of hemorrhage. Vital signs reviewed and are within normal limits, adequate urine output. She is meeting all appropriate postoperative milestones at this time. We again debrided her delivery where there are no residual questions at this time. Would have a low threshold to repeat labs and consider further assessment if there were to be a change in her vaginal bleeding, postoperative progress or change in vital signs. Pathology pending regarding potential PAS. All questions answered.
[2025-02-17] MEDS: DOCUSATE SODIUM 100 MG CAPSULE PO (08:44)
[2025-02-17] MEDS: MAG HYDROX/ALUMINUM HYD/SIMETH 30 ML ORAL.SUSP PO ×2 (08:44→18:01)
[2025-02-18 02:15] VITALS: BP 116/75; PULSE 78; RESP 20; TEMP 36.8; O2SAT 98
[2025-02-18] MEDS: ACETAMINOPHEN 500 MG TABLET 1000 MG PO ×4 (02:24→20:48)
[2025-02-18] MEDS: METHYLERGONOVINE MALEATE 0.2 MG TABLET PO ×3 (02:25→18:23)
--- NOTE | 2025-02-18 08:28 | PM.OBPNVD1 ---
OB - PN:Subj Subjective Date Seen: 02/18/25 Patient comments OB post-: pain well controlled (Mostly dealing with gas pain/discomfort now), tolerating diet and flatus present status: doing well Narrative: The patient feels well.? The pain is well controlled with current medications.?She is feeling uncomfortable with gas pain. Urinary output is adequate and she is voiding without difficulty.? Has a good appetite, is tolerating a general diet, is passing flatus, and has not had a bowel movement.? Has scant amount of rubra lochia.? She is ambulating well. She is and reports it is going well.? OB - PN: Obj Exam Physical Exam: Vital signs: Temp Pulse Resp BP Pulse Ox O2 Del Method 98.2 F 78 20 116/75 98 Room Air 02/18/25 02:15 02/18/25 02:15 02/18/25 02:15 02/18/25 02:15 02/18/25 02:15 02/18/25 02:15 Narrative: GENERAL APPEARANCE:? normal affect, alert, no distress MOOD:? appropriate CHEST:? clear to auscultation HEART:? regular rate and rhythm ABDOMEN: positive bowel sounds, mildly distended,? soft, appropriately -tender and the uterine fundus is At Umbilicus, Midline and is appropriate for the stage of recovery. EXTREMITIES:? normal and bilateral pitting +1 edema Incision: Covered, dressing is dry and no surrounding erythema noted. 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 Gas pain: Encouraged to continue ambulation, chewing gum. 2. Methergine will be d/c today and will continue close monitoring of bleeding today, if all normal will plan to discharge home tomorrow.
[2025-02-18] MEDS: DOCUSATE SODIUM 100 MG CAPSULE PO (08:32)
[2025-02-18 08:34] VITALS: BP 120/74; PULSE 82; RESP 16; TEMP 36.7; O2SAT 98
[2025-02-18] MEDS: IBUPROFEN 600 MG TABLET PO ×2 (11:38→17:33)
[2025-02-18 16:47] VITALS: BP 138/88; PULSE 99; RESP 16; TEMP 36.7; O2SAT 98
[2025-02-18] MEDS: SIMETHICONE 80 MG TAB.CHEW PO (17:40)
[2025-02-18 20:30] VITALS: BP 123/77; PULSE 80; RESP 16; TEMP 36.8; O2SAT 98
[2025-02-18] MEDS: LANOLIN CREAM 1 APPLIC TOPICAL (20:49)
[2025-02-19] MEDS: IBUPROFEN 600 MG TABLET PO ×2 (02:42→10:50)
[2025-02-19] MEDS: METHYLERGONOVINE MALEATE 0.2 MG TABLET PO (02:43)
[2025-02-19 04:30] VITALS: BP 116/76; PULSE 68; RESP 16; TEMP 36.6; O2SAT 97
[2025-02-19] MEDS: ACETAMINOPHEN 500 MG TABLET 1000 MG PO (07:49)
[2025-02-19] MEDS: DOCUSATE SODIUM 100 MG CAPSULE PO (07:50)
--- NOTE | 2025-02-19 07:50 | PM.OBDSVD1 ---
DS: Providers Provider Time Seen by Provider: 07:51 Date Seen: 02/19/25 Date of admission: 02/16/25 07:15 Primary care physician: Not a Local Provider Admitting Clinician: Lauren Adam MD Attending Physician on discharge: Bety Melton MD Date of Discharge: 02/19/25 DS: Diagnosis Discharge Diagnosis (1) Status post repeat low transverse section: Status: Acute Problem details: With bilateral salpingectomy (2) Placenta accreta affecting delivery: Status: Acute (3) hemorrhage: Status: Acute Problem details: 2u pRBC's and 1u FFP Exam Narrative: Exam Narrative: General: Pleasant, , well groomed woman in no acute distress. Vital signs: Included in her electronic medical record. Heart: Regular rate and rhythm without gallop, rub or murmur. Chest: Clear to auscultation bilaterally. Abdomen: Soft, nontender and nondistended with normal bowel sounds throughout. No CVA or flank tenderness. Fundus firm at the umbilicus in the midline. Incision: Clean, dry and intact with subcutaneous sutures and skin adhesive gel. Extremities: 2+ bilateral lower extremity edema to the mid card. No pain. Const: Vital Signs, click to edit/add: Vital Signs - 24 hr 02/18/25 08:34 02/18/25 16:47 02/18/25 20:30 Temperature 98.1 F 98.1 F 98.2 F Pulse Rate [Pulse Oximeter] 82 99 80 Respiratory Rate 16 16 16 Blood Pressure [Ri ght Arm] 120/74 138/88 123/77 Pulse Oximetry 98 98 98 Oxygen Delivery Me thod Room Air Room Air Room Air 02/19/25 04:30 Temperature 98 F Pulse Rate [Pulse Oximeter] 68 Respiratory Rate 16 Blood Pressure [Ri ght Arm] 116/76 Pulse Oximetry 97 Oxygen Delivery Me thod Room Air OB - DS: Summary Hospital Course Hospital Course: Tosin is a 34 year old G 3 P 1011 now 2 at 39 weeks gestation that was admitted to the Center on 02/16/25 for scheduled repeat with bilateral salpingectomy. She had an complicated delivery: Possible focal placenta accreta with hemorrhage, received 2 units packed red blood cells and 1 unit FFP. She delivered a viable male . She is breast feeding. the patient has done well. Peripartum Data Procedures: Procedures Operation Date: 02/16/25 08:45 Actual Procedure Side Surgeon p Repeat Section Lauren Adam MD Procedures: tubal ligation/salpingectomy Infant Gender: Male Status at Discharge Functional status at discharge: independent ambulation Overall status at discharge: patient is progressing back to baseline Time Spent with Patient Time attestation: Total time spent providing and/or coordinating discharge services: Time spent: Less than 30 minutes Discharge Plan Discharge Disposition: Home, Self-Care Date of Admission: 02/16/25 07:15 Attending Provider on Discharge: Bety Melton Primary Care Provider: Provider,Not a Local Condition: Improved Anticipated Discharge Date/Time: 02/19/25 12:00 Discharge Medications: New docusate sodium 100 mg Capsule 100 mg PO BID PRN (Reason: constipation) Qty: 100 0RF ibuprofen 600 mg Tablet 600 mg PO Q6H PRNQty: 30 0RF oxycodone 5 mg Tablet 5 mg PO 3XD PRN (Reason: Pain) Qty: 21 0RF Continued with DHA-Folic Acid 400-32.5 mcg-mg tablet,chewable PO calcium carbonate [Tums] 200 mg calcium (500 mg) tablet,chewable 200 mg PO BID PRN Discontinued ferrous sulfate 325 mg (65 mg iron) tablet 325 mg PO QDAY Discharge Orders: Discharge Order (Routine); Ordered 02/19/25 Ordered By: Bety Melton Patient Education: (DC), Hemorrhage (DC) Additional Instructions: ACTIVITY RESTRICTIONS: Nothing vaginally for 6 weeks: no tampons/intercourse No driving while taking narcotic pain medication during the day. 1-2 weeks. Lifting restriction: Maximum of 20 pounds for 6 weeks. No high impact or core exercises: 6 weeks. Do not submerge the incision in water (bath/pool/roque): 2 weeks. Off of work/school for a minimum of 8 weeks NO RESTRICTIONS for: Walking Going up/down stairs Showering Being a passenger in a motor vehicle. Symptoms to report to doctor: Bleeding that saturates more than one pad per hour Passing clots larger than the size of a golf ball Pain not relieved by prescribed medication Fever: temperature 100.4o Fahrenheit A foul vaginal odor Difficulty in emotions, mood and functions Thoughts of hurting yourself and/or Painful, reddened area in your breast Any drainage, redness or tenderness in your IV/epidural site Severe headache that doesn't improve after taking medications Changes in vision, including temporary loss of vision, blurred vision, and/or light sensitivity Upper abdominal pain (especially if under ribs on the right side) Decrease in urination or painful, frequent urinating Chest pain Shortness of breath Tenderness or pain with redness and/swelling in the calf(s) of your leg Concerns about your incision: increased pain, swelling, redness or drainage. Follow-up: 1. 2 week visit: Screen for anxiety/depression, discuss contraceptive options, incision check and answer questions regarding self and care. 2. A 6 week visit for an annual physical exam. For Pain: Take ibuprofen 600mg every 6 hours and ES Tylenol 1,000mg (2 tablets/capsules) every 6 hours: Alternate these every 3 hours. Example: Take ibuprofen at 9am, Tylenol at Noon, ibuprofen at 3pm, Tylenol at 6pm, etc. Add a tablet of oxycodone up to 3 times a day if needed. consultation services are available to all mothers and babies for the first year after delivery. To make an appointment, please call [phone]. Activity Level: Other Follow Up Appointments: Provider,Not a Local [Primary Care Provider, Family Practice] [facility] [Outside] Forms: Patient Belongings, MyHealth Info Instructions
[2025-02-19 08:45] VITALS: BP 123/80; PULSE 85; RESP 16; TEMP 36.9; O2SAT 98
== END 2025-02-19 11:30 | disposition home or self-care (01) | DRG 787 ==
PROVIDERS: Admitting Provider Obstetrics & Gynecology; Visit Provider Obstetrics & Gynecology
PROC: 10D00Z1 Extraction of Products of Conception, Low, Open Approach (ICD-10-PCS; CPT 59514; principal; 2025-02-16 08:45)
DX: O34.211 Maternal care for low transverse scar from previous cesarean delivery (principal); O72.0 Third-stage hemorrhage; O99.12 Other diseases of the blood and blood-forming organs and certain disorders involving the immune mechanism complicating childbirth; G89.18 Other acute postprocedural pain; G43.709 Chronic migraine without aura, not intractable, without status migrainosus; O99.344 Other mental disorders complicating childbirth; F41.9 Anxiety disorder, unspecified; O34.03 Maternal care for unspecified congenital malformation of uterus, third trimester; Q51.3 Bicornate uterus; O99.02 Anemia complicating childbirth; D69.6 Thrombocytopenia, unspecified; D64.9 Anemia, unspecified; Z3A.39 39 weeks gestation of pregnancy; Z85.820 Personal history of malignant melanoma of skin; Z37.0 Single live birth
CPT/HCPCS: 01961; 36415; 36430; 64488; 76942; 80053; 85018; 85025; 85384; 85610; 85730; 86592; 86850; 86900; 86901; 86922; 88305; 88307; A4314; A9270; J0665; J0666; J0690; J1100; J1885; J2210; J2250; J2274; J2371; J2405; J2590; J2765; J3010; J7120; P9016; P9017

== ENCOUNTER 2025-02-22 11:32 | Outpatient (CLI) | payer OTHER, SELFPAY | END 2025-02-22 11:33 | disposition home or self-care (01) | PROVIDERS: Visit Provider Obstetrics & Gynecology | DX: R03.0 Elevated blood-pressure reading, without diagnosis of hypertension (principal) | CPT/HCPCS: 82565; 82570; 84156; 84450; 84460; 84520 ==

== ENCOUNTER 2025-02-22 12:55 | Inpatient (IN) | payer OTHER, SELFPAY ==
[2025-02-22] VITALS (17 sets, daily range): BP systolic 122–144; BP diastolic 78–91; PULSE 73–99; RESP 15–19; TEMP 36.7–37; O2SAT 96–100
[2025-02-22] MEDS: MAGNESIUM IV 4 GM/100 ML PIGGYBACK IVPB (13:36)
[2025-02-22] MEDS: LACTATED RINGERS 1000 ML 1,000 ML 75 ML IV (13:36)
[2025-02-22] MEDS: MAGNESIUM Infusion 40 GM/1,000 ML IV.SOLN IVPB (14:07)
--- NOTE | 2025-02-22 15:08 | W.PM.LDBA ---
Subjective History of Present Illness Narrative: Patient is being admitted to Labor and Delivery for preeclampsia with severe features. She is PPD6 from /S for an urgent add on in the setting of new elevated blood pressure and feeling unwell. Her delivery was complicated by PPH with possible focal accreta. was otherwise complicated by bicornuate uterus, history of C/S, history of melanoma, anxiety and anemia. Patient received 2 units packed red blood cells and 1 unit of FFP in the OR. Postprocedure hemoglobin was 12.7 to 11.3 on POD1. Patient had an uncomplicated hospitalization, was discharged home on postoperative day 3. She was seen for urgent add on in the clinic today, in the setting of new elevated blood pressure and feeling unwell when presenting for pediatrics visit. She has had intermittent headaches, resolve with ibuprofen or Tylenol. No vision changes or right upper quadrant pain. She notes worsening edema through time. No lower extremity unilateral swelling, erythema or pain. No chest pain or dyspnea. Physically, her recovery is going okay. She notes feeling weird as of this morning with slight nausea. She does have some ongoing cramping that is improved with ibuprofen or Tylenol. Denies any significant lochia. Notes low appetite, but denies vomiting, bowel or bladder concerns. No incision concerns. Specific Issues/Plans Partner: Mu? H&P:? Kia on 01/27 #Bicornate uterus not noted in previous Level II US. Redemonstrated. Growth at 28 and 34 weeks. Orders placed # Previous C/S?- planning rC/S on 02/16 with Kia #? Melanoma excision in November 2023 seeing Derm for follow up as recommended Send placenta to pathology #? Hx anxiety not on meds at [facility], denies issues at this time. Elevated PHQ9 and GAD7 at 32 weeks - PGQ9 5 and GAD7 of 7 at follow up. ? #Anemia - Hgb 10.4 at 27w4d GA, start oral iron Imaging:??? 09/22/24: EFW 90 percentile. AC 82nd percentile. Posterior placenta, no previa. Three-vessel cord. MVP 6.1 cm. No anomalies commonly detected by ultrasound were detected. However there were suboptimal views. Transabdominal imaging of the cervix appeared long and closed. Some images suggest a uterine anomaly/bicornuate or septated uterus with fetus located on left side of the uterus. Transvaginal ultrasound performed for cervical length which was 45 mm. Follow-up to in 4 weeks to reassess anatomy for the suboptimal views. 10/13/24: EFW 550 g, 94th percentile, AC 90th percentile. Posterior/left lateral placenta, no previa. MVP 5.7 cm. Remaining anatomy survey was completed, no anomalies. 11/23: EFW 1317g at 89%ile, AC 76%ile. Vertex. FHR 141bpm, MVP 6.7cm. 01/06: EFW 2628g at 83%ile - BPD >97, HC 92, AC 80, FL 55. MVP 5.1. Vertex. Vaccinations:?? COVID: initial series, boosted 1 time, declined booster today. Flu: 05/18/2024 Tdap: 12/21/24 32 week mental health: PHQ9: 10, GAD7: 8. Declined referral/medications. Last pap:? done at NOB visit? OB - Problem Based A/P Additional Plan (1) Bicornate uterus complicating : Status: Acute (2) hemorrhage: Problem details: 2u pRBC's and 1u FFP Status: Acute (3) Severe preeclampsia: Status: Acute (4) Status post repeat low transverse section: Problem details: Has a pph, possible focal acreta Status: Acute Plan Tosin is a 34-year-old readmitted on PPD6 from /S for an urgent add on in the setting of preeclampsia with severe features. was otherwise complicated by bicornuate uterus, history of C/S, history of melanoma, anxiety and anemia. Her delivery was complicated by PPH with possible focal accreta, QBL 2.7L. Patient received 2 units packed red blood cells and 1 unit of FFP in the OR. Postprocedure hemoglobin was 12.7 to 11.3 on POD1. Patient had an uncomplicated hospitalization, was discharged home on postoperative day 3. She had no elevated blood pressures during that hospitalization. Patient was newly noted to have mild range blood pressures today. PreE labs were obtained, noted to be within normal limits. Hemoglobin 9.8 (from 11.3 on POD1), platelets 251, Cr 0.8, ALT 30 and ALT 17, UPCR 0.41. Of note, on POD0-1 platelets were 95-98k with no clear etiology. She was not coagulopathic to suggest DIC as potential etiology. Though Tosin had a significant PPH, she did not have evidence of DIC to explain her TCP. Even prior to surgery her platelets were noted to newly be 112 from 200 at 28 weeks. Since Tosin had severe range thrombocytopenia without an alternative etiology, I do have concern for preeclampsia with severe features in the period. Tosin has a history of HTN disorder in her last , notes this was not severe and did not require magnesium. Explained given the significance of progression to eclampsia, I do think the safest thing would be to admit her to the hospital for magnesium sulfate times 24 hours. In addition, I typically recommend my observation for another 24 hours after magnesium in case further blood pressure patient titration is required. The rate was understandably upset that she needs to be readmitted, she expressed understanding and wishes to proceed. - Admit to - Start magnesium sulfate 4 g bolus, 2 grams/hour infusion thereafter times 24 hours - Recommend serial preeclampsia labs Q6H - Diligent BP monitoring ongoing, will consider starting long acting anti-hypertensive medication with persistent BPs in the mild range - Routine PP cares and lactating support. Plan ibuprofen and tylenol Q6H PRN for pain control. - Strict I/O monitoring ongoing Dispo: Inpatient likely 2 nights, consider dismissal after 24s of mag ONLY pending patient stability and BP control (ideally 2 nights inpatient) OB Exam Physical Exam Vital signs: Temp Pulse Resp BP Pulse Ox O2 Del Method 98.1 F 73 17 125/82 100 Room Air 02/22/25 14:16 02/22/25 14:30 02/22/25 14:30 02/22/25 14:30 02/22/25 14:30 02/22/25 14:30 Narrative: Patient was examined in the clinic. Please see my note for more details. Since admission, her blood pressures have been in the normal to mild range.
[2025-02-22] MEDS: IBUPROFEN 600 MG TABLET PO (16:23)
[2025-02-22] MEDS: DOCUSATE SODIUM 100 MG CAPSULE PO (16:23)
[2025-02-22] MEDS: ACETAMINOPHEN 500 MG TABLET 1000 MG PO (18:00)
[2025-02-22 18:19] LABS: Hematocrit 32.2 % (33.0-51.0); Hemoglobin* 10.5 gm/dL (12.0-16.0); Mean Corpuscular HGB Conc 33 gm/dL (32-36); Mean Corpuscular Hemoglobin 29 pg (26-34); Mean Corpuscular Volume 90 fL (80-100); Red Blood Count 3.59 m/uL (4.00-5.20); White Blood Count* 9.02 K/uL (4.50-11.00)
[2025-02-22 18:22] LABS: Slide Review Reflex No
[2025-02-22 18:35] LABS: Alanine Aminotransferase* 20 U/L (4-35); Aspartate Amino Transferase* 31 U/L (12-35); Blood Urea Nitrogen* 13 mg/dL (5-24); Creatinine* 0.7 mg/dL (0.5-1.5); Est. Creatinine Clearance* 96.86; Estimated Glomerular Filt Rate 116 ml/min
[2025-02-23] VITALS (13 sets, daily range): BP systolic 114–142; BP diastolic 75–93; PULSE 76–94; RESP 16–18; TEMP 36.5–37.1; O2SAT 97–99
[2025-02-23] MEDS: ACETAMINOPHEN 500 MG TABLET 1000 MG PO ×4 (00:27→19:46)
[2025-02-23] MEDS: LACTATED RINGERS 1000 ML 1,000 ML 75 ML IV (00:33)
[2025-02-23 01:28] LABS: Hematocrit 29.0 % (33.0-51.0); Hemoglobin* 9.7 gm/dL (12.0-16.0); Mean Corpuscular HGB Conc 33 gm/dL (32-36); Mean Corpuscular Hemoglobin 30 pg (26-34); Mean Corpuscular Volume 90 fL (80-100); Red Blood Count 3.23 m/uL (4.00-5.20); White Blood Count* 8.11 K/uL (4.50-11.00)
[2025-02-23 01:32] LABS: Slide Review Reflex No
[2025-02-23 01:42] LABS: Blood Urea Nitrogen* 15 mg/dL (5-24); Creatinine* 0.7 mg/dL (0.5-1.5); Est. Creatinine Clearance* 96.86; Estimated Glomerular Filt Rate 116 ml/min
[2025-02-23 01:43] LABS: Alanine Aminotransferase* 17 U/L (4-35); Aspartate Amino Transferase* 29 U/L (12-35)
[2025-02-23] MEDS: IBUPROFEN 600 MG TABLET PO (02:17)
[2025-02-23] MEDS: LABETALOL HCL 100 MG TABLET PO (07:07)
[2025-02-23 07:58] LABS: Hematocrit 33.5 % (33.0-51.0); Hemoglobin* 11.0 gm/dL (12.0-16.0); Mean Corpuscular HGB Conc 33 gm/dL (32-36); Mean Corpuscular Hemoglobin 30 pg (26-34); Mean Corpuscular Volume 90 fL (80-100); Red Blood Count 3.72 m/uL (4.00-5.20); White Blood Count* 7.94 K/uL (4.50-11.00)
[2025-02-23 08:02] LABS: Alanine Aminotransferase* 20 U/L (4-35); Aspartate Amino Transferase* 30 U/L (12-35); Blood Urea Nitrogen* 14 mg/dL (5-24); Creatinine* 0.7 mg/dL (0.5-1.5); Est. Creatinine Clearance* 96.86; Estimated Glomerular Filt Rate 116 ml/min
[2025-02-23 08:08] LABS: Slide Review Reflex No
[2025-02-23] MEDS: MAGNESIUM Infusion 40 GM/1,000 ML IV.SOLN IVPB (09:19)
--- NOTE | 2025-02-23 11:25 | PM.OBPNVD1 ---
OB - PN:Subj Subjective Time Seen by Provider: 11:25 Date Seen: 02/23/25 Patient comments OB post-: pain well controlled, tolerating diet and flatus present status: Narrative: The patient feels better now that Magnesium infusion has been discontinued. Has experienced mild headache that has resolved with Tylenol. A bit of blurry vision while the magnesium infusion was running, but none currently. No abdominal pain. She has no new complaints.? Urinary output is adequate and she is voiding without difficulty.? Has a good appetite, is tolerating a general diet, is passing flatus, and has had a bowel movement.? Has scant amount of rubra lochia.? She is ambulating well. She is and reports it is going well.? OB - PN: Obj Exam Physical Exam: Vital signs: Temp Pulse Resp BP Pulse Ox O2 Del Method 98.2 F 81 18 115/75 97 Room Air 02/23/25 08:00 02/23/25 08:00 02/23/25 10:09 02/23/25 10:09 02/23/25 08:00 02/23/25 08:00 Narrative: GENERAL APPEARANCE:? normal affect, alert, no distress MOOD:? appropriate CHEST:? clear to auscultation HEART:? regular rate and rhythm ABDOMEN:? soft, non-tender. EXTREMITIES:? normal and trace edema Incision: Healing well, no surrounding erythema, abnormal induration or discharge. OB - PN: Obj Data Labs Labs: Laboratory Results - last 24 hr 02/22/25 02/23/25 02/23/25 18:15 01:15 07:35 WBC 9.02 8.11 7.94 RBC 3.59 L 3.23 L 3.72 L Hgb 10.5 L 9.7 L 11.0 L Hct 32.2 L 29.0 L 33.5 MCV 90 90 90 MCH 29 30 30 MCHC 33 33 33 Plt Count 303 275 321 BUN 13 15 14 Creatinine 0.7 0.7 0.7 Estimated Creat Clear 96.86 96.86 96.86 Estimated GFR 116 116 116 Magnesium 5.9 H* 6.6 H* 7.6 H* AST 31 29 30 ALT 20 17 20 OB - PN: A/P Delivery Assessment and Plan (1) Bicornate uterus complicating : Status: Acute (2) hemorrhage: Problem details: 2u pRBC's and 1u FFP Status: Acute (3) Severe preeclampsia: Status: Acute Assessment and Plan: 1. S/P Magnesium sulfate infusion- we discontinued infusion a bit sooner than planned due to magnesium level at 7.6 and patient symptoms (blurry vision). 2. Q 6 labs all normal. 3. Blood pressures-some mildly elevated and patient was started this am on Labetalol 100mg BID. 4. Urine output has remained normal. 5. No concerning PROGRAM MANAGEMENT MANAGER irritability symptoms. (4) Status post repeat low transverse section: Problem details: Has a pph, possible focal acreta Status: Acute Plan day: 7 Plan: other (Readmit- severe hypertension disorder associated to ) Comments: Patient would really like to go home today. I recommended staying at least to complete 12 hours of observation after completion of magnesium sulfate infusion which would be after 9-10pm tonight. Patient is open to staying until tomorrow am if needed. Discussed that we would want to monitor BPs and make any medication re adjustments if needed prior to discharge. She feels comfortable with this plan. Will not order any new labs unless there are any severely elevated BPs, or new PROGRAM MANAGEMENT MANAGER irritability symptoms.
[2025-02-23] MEDS: DOCUSATE SODIUM 100 MG CAPSULE PO (12:58)
[2025-02-23 13:23] LABS: Hematocrit 30.9 % (33.0-51.0); Hemoglobin* 10.2 gm/dL (12.0-16.0); Mean Corpuscular HGB Conc 33 gm/dL (32-36); Mean Corpuscular Hemoglobin 30 pg (26-34); Mean Corpuscular Volume 90 fL (80-100); Red Blood Count 3.42 m/uL (4.00-5.20); White Blood Count* 7.25 K/uL (4.50-11.00)
[2025-02-23 13:30] LABS: Slide Review Reflex No
[2025-02-23 13:40] LABS: Alanine Aminotransferase* 19 U/L (4-35); Aspartate Amino Transferase* 32 U/L (12-35); Blood Urea Nitrogen* 13 mg/dL (5-24); Creatinine* 0.8 mg/dL (0.5-1.5); Est. Creatinine Clearance* 84.76; Estimated Glomerular Filt Rate 98 ml/min
[2025-02-23] MEDS: LABETALOL HCL 100 MG TABLET 200 MG PO (21:25)
[2025-02-24 04:41] VITALS: BP 113/77; PULSE 75; RESP 16; O2SAT 98
[2025-02-24 08:57] VITALS: BP 124/87; PULSE 100; RESP 16; TEMP 36.9; O2SAT 97
[2025-02-24] MEDS: DOCUSATE SODIUM 100 MG CAPSULE PO (08:58)
[2025-02-24] MEDS: LABETALOL HCL 100 MG TABLET 200 MG PO (08:58)
[2025-02-24] MEDS: ACETAMINOPHEN 500 MG TABLET 1000 MG PO (10:24)
--- NOTE | 2025-02-24 10:33 | P.DS_ITS ---
DS: Providers Provider Date Seen: 02/24/25 Date of admission: 02/22/25 12:55 Primary care physician: Not a Local Provider Admitting Clinician: Lauren Adam MD Attending Physician on discharge: Annika Burris MD Date of Discharge: 02/24/25 DS: Diagnosis Discharge Diagnosis (1) Placenta accreta: Status: Acute Problem details: Received call from Dr. Langston (Myah grullon) where diagnosis of accreta is met on re-examination of path with this clinical history. Formal path addendum pending. Pt notified on this finding on 02/22. (2) Severe preeclampsia: Status: Acute (3) Status post repeat low transverse section: Status: Acute Problem details: Has a pph, possible focal acreta Exam Narrative: Exam Narrative: General: Pleasant, no acute distress Heart: Regular rate and rhythm, no murmur or gallop Lungs: Clear to auscultation bilaterally Abdomen: Soft, nontender, fundus well below umbilicus, normoactive bowel sounds, incision clean, dry, intact Lower extremities: No edema or erythema Const: Vital Signs, click to edit/add: Vital Signs - 24 hr 02/23/25 13:49 02/23/25 17:38 02/23/25 17:45 Temperature 98.6 F 98.7 F Pulse Rate [Pulse Oximeter] 94 77 Respiratory Rate 16 16 Blood Pressure [Le ft Arm] 123/84 142/91 H 136/85 Pulse Oximetry 98 99 Oxygen Delivery Me thod Room Air Room Air 02/23/25 19:57 02/23/25 23:56 02/24/25 04:41 Temperature 97.7 F 98 F Pulse Rate [Pulse Oximeter] 85 76 75 Respiratory Rate 16 16 16 Blood Pressure [Le ft Arm] 127/82 114/75 113/77 Pulse Oximetry 98 97 98 Oxygen Delivery Me thod Room Air Room Air Room Air 02/24/25 08:57 Temperature 98.5 F Pulse Rate [Pulse Oximeter] 100 Respiratory Rate 16 Blood Pressure [Le ft Arm] 124/87 Pulse Oximetry 97 Oxygen Delivery Me thod Room Air OB - DS: Summary Hospital Course Hospital Course: Tosin is a 34 yo G3 now P2-0-1 2 woman on hospital day 2 after readmission for preeclampsia with severe features, and POD #8 after repeat complicated by hemorrhage and focal placenta accreta. Diagnosis of severity was based on new onset of mildly elevated blood pressures and proteinuria with thrombocytopenia. She is now s/p infusion of magnesium sulfate, stopped early due to patient symptoms of blurry vision. She has been started on labetalol 200 mg BID for management of blood pressures. Her dose was increased from 100-200 mg last night, and she has been normotensive since last night. She is breast feeding. the patient has done well. She denies any heavy bleeding. She is avoiding constipation with use of stool softeners. She has no complaints regarding urination. Overall, she is feeling better than when she was admitted. Swelling has decreased dramatically. Time Spent with Patient Time attestation: Total time spent providing and/or coordinating discharge services: Discharge Plan Discharge Disposition: Home, Self-Care Date of Admission: 02/22/25 12:55 Attending Provider on Discharge: Annika Burris Primary Care Provider: Provider,Not a Local Condition: Improved Anticipated Discharge Date/Time: 02/24/25 10:46 Discharge Medications: New acetaminophen 500 mg Tablet 1,000 mg PO Q6H PRN (Reason: Pain) Qty: 0 0RF labetalol 100 mg Tablet 200 mg PO BID Qty: 60 0RF Continued with DHA-Folic Acid 400-32.5 mcg-mg tablet,chewable PO calcium carbonate [Tums] 200 mg calcium (500 mg) tablet,chewable 200 mg PO BID PRN docusate sodium 100 mg Capsule 100 mg PO BID PRN (Reason: constipation) Qty: 100 0RF ibuprofen 600 mg Tablet 600 mg PO Q6H PRNQty: 30 0RF oxycodone 5 mg Tablet 5 mg PO 3XD PRN (Reason: Pain) Qty: 21 0RF Discharge Orders: Discharge Order (Routine); Ordered 02/24/25 Ordered By: Annika Burris Patient Education: OB High Blood Pressure DC, OB Over the Counter Medication Information, OB /Breast Feeding Additional Instructions: Discharge instructions were reviewed with the patient including signs and symptoms of infection and home going medications Lifting Restrictions: 20 pounds for 6 weeks No not submerge incision under water X 2 weeks? Nothing vaginally for 6 weeks: no tampons or intercourse Do not drive while taking narcotic pain medication(s) Off Work or School for 8 weeks Symptoms to report to doctor: * Bleeding that saturates more than one pad per hour * Passing clots larger than the size of a golf ball * Pain not relieved by prescribed medication * Fever above 100.4 degrees Fahrenheit * A foul vaginal odor * Difficulty in emotions, mood, and functions * Thoughts of hurting yourself and/or * Painful, reddened area in your breast * Any drainage, redness, or tenderness in your IV/epidural site * Severe headache that doesn't improve after taking medications * Changes in vision, including temporary loss of vision, blurred vision, and/or light sensitivity * Upper abdominal pain (usually under ribs on the right side) * Decrease in urination or painful, frequent urinating * Chest pain * Shortness of breath * Tenderness or pain with redness and/swelling in the calf(s) of your leg [facility] for a BP check?and 2 week visit Saturday or Saturday - Please call to schedule. Call with BP greater than or equal to 150/100 Optional 2-week visit: incision check, discuss feeding concerns, review control options and screen for anxiety/depression. 6-week visit consultation services are available to all mothers and babies for the first year after delivery.? To make an appointment, please call [phone]. Activity Detail: as above Discharge Diet: Regular Follow Up Appointments: Provider,Not a Local [Primary Care Provider, Family Practice] [facility] [Provider Group] Forms: Patient Belongings, [facility] Info Instructions DS:Data Additional Comments Additional comments: Last set of labs at 1:05 p.m. on 02/23/2025 Hemoglobin 10.2, hematocrit 30.9%, platelets 334 BUN 13, creatinine 0.8 AST 32, ALT 19
== END 2025-02-24 11:27 | disposition home or self-care (01) | DRG 776 ==
PROVIDERS: Admitting Provider Obstetrics & Gynecology; Visit Provider Obstetrics & Gynecology
DX: O14.15 Severe pre-eclampsia, complicating the puerperium (principal); L27.1 Localized skin eruption due to drugs and medicaments taken internally; H53.8 Other visual disturbances; T47.4X5A Adverse effect of other laxatives, initial encounter
CPT/HCPCS: 36415; 82565; 83735; 84450; 84460; 84520; 85027; A9270; J3475; J7120

== ENCOUNTER 2025-03-22 11:09 | Outpatient (CLI) | payer OTHER, SELFPAY ==
--- NOTE | 2025-03-22 11:15 | CRLHL7_ITS ---
For Patients: As a result of the Century Cures Act, medical imaging exams and procedure reports are released immediately into your electronic medical record. You may view this report before your referring provider. If you have questions, please contact your health care provider. INDICATION: Other congenital malformations of uterus COMPARISON: None. TECHNIQUE: 2D ribera-scale and color Doppler images were acquired of the pelvis using a transabdominal and transvaginal approach. Transvaginal imaging performed to better visualize the endometrial stripe and ovaries. FINDINGS: Postop changes of section 5 weeks ago. A few scattered myometrial calcifications are suspected. No abnormality of the uterine contour. No uterine fibroid. Uterus measures 9.9 cm in length by 4.6 cm in AP diameter by 8.1 cm in transverse dimension. The endometrial lining appears heterogeneous and measures 7 mm in composite thickness. The right ovary measures 2.4 x 1.4 x 1.7 cm in size and the left ovary measures 3.2 x 1.6 x 1.7 cm. The ovaries demonstrate normal arterial and venous blood flow on color Doppler analysis. There are no suspicious fluid collections within the cul-de-sac. IMPRESSION: No evidence of arcuate or bicornuate uterus. Dictated by Alvaro Treadwell MD @ 03/22/2025 2:49:13 PM (Electronically Signed)
== END 2025-03-22 11:10 | disposition home or self-care (01) ==
LOC: US 11:09
PROVIDERS: Visit Provider Obstetrics & Gynecology
DX: Z39.2 Encounter for routine postpartum follow-up (principal)
CPT/HCPCS: 76830; 76856